=== PATIENT | male | born 1995 | race American Indian/Alaskan Native ===

== ENCOUNTER 2017-10-31 06:47 | Day surgery (SDC) | payer BC ==
[2017-10-31] MEDS ORDERED: Succinylcholine 200 mg/10 ml Inj IV ONE (07:15)
[2017-10-31] MEDS ORDERED: Propofol 10 mg/ml Inj (20 ML) ONE ×2 (07:15→09:40)
[2017-10-31] MEDS ORDERED: Midazolam 2 MG/2 ML VIAL ONE (07:15)
[2017-10-31] MEDS ORDERED: Rocuronium 10 mg/ml (5 ml) ONE (07:15)
[2017-10-31 07:23] VITALS: BMI 23.7
[2017-10-31] MEDS ORDERED: Lactated Ringer's 1,000 ML IV ONE ×3 (07:30→13:57)
[2017-10-31] MEDS ORDERED: Bacitracin Ointment 30 GM TUBE ONE (07:38)
[2017-10-31] MEDS ORDERED: ceFAZolin IV 1 gm in Dextrose 2 GM/100 ML BAG IVPB ONE (07:38)
[2017-10-31] MEDS ORDERED: Bupivacaine HCl 0.25% PF (30 ml) Inj ONE (07:38)
[2017-10-31] MEDS ORDERED: Lidocaine 2% w Epi 1:100,000 Inj IJ ONE ×2 (07:38→08:20)
[2017-10-31] MEDS ORDERED: Lidocaine 2% Inj (20ml) ONE (07:38)
[2017-10-31] MEDS ORDERED: Neostigmine Methylsulfate 2 MG/2 ML ML IV ONE (08:43)
[2017-10-31] MEDS ORDERED: Dexamethasone 4 mg/1 ml ONE (09:43)
[2017-10-31] MEDS ORDERED: HYDROCORTISONE IV ONE (10:00)
[2017-10-31] MEDS ORDERED: SODIUM CHLORIDE 0.9% IV ONE (10:00)
[2017-10-31] MEDS ORDERED: Hydrocortisone Succinat 250 MG vial IV ONE (10:30)
[2017-10-31] MEDS: HYDROmorphone 0.5 mg/0.5 ml ISec IVP PRN ×3 (10:45→11:50)
[2017-10-31 11:56] VITALS: RESP 20
[2017-10-31 17:04] VITALS: BP 116/68; PULSE 106; TEMP 98.2; O2SAT 96
--- NOTE | 2017-11-04 09:47 | OP ---
PROCEDURE DATE: INDICATION FOR PROCEDURE: Patient presented to my office with the complaint that he had some maxillary sinus inflammation. Clinical NPA exam revealed odontogenic-like lesion in left maxillary sinus floor. PREOPERATIVE DIAGNOSIS: Odontogenic lesion of left maxillary sinus. SURGEON: Cristel Hoskins DMD. TYPE OF ANESTHESIA: General anesthesia via nasal and oral intubation. DESCRIPTION OF THE PROCEDURE: Patient was placed in a supine position and after adequate level of general anesthesia was obtained, patient was then prepped and draped for an intraoral surgical procedure. The patient was then given infiltration both intraorally and with a #15 Bard-Rafael blade, a full mucoperiosteal flap was then elevated on the upper right, extending from the upper left tuberosity and up into the upper left canine with a vertical release. The flap was then elevated, exposing the left maxillary sinus lateral wall. Perforations were then made, creating an opening at the sinus. The sinus was then copiously irrigated exposing the tooth-like structures surrounded by soft tissue. The tooth-like structure was then removed with the associated soft tissue and submitted for a histopath evaluation. The sinus was copiously irrigated and tissues were then reapproximated with Chromic gut interrupted suturing. Prior to that, an iodoform packing was then placed and tissues were then approximated. The patient tolerated the procedure well without any complications. He was then discharged to the recovery room in good condition. Cristel Hoskins DMD
== END 2017-10-31 17:15 | disposition home or self-care (01) ==
LOC: H.OPSURG 06:47
PROVIDERS: ATTEND Dentist
DX: T17.0XXA Foreign body in nasal sinus, initial encounter (principal); F90.9 Attention-deficit hyperactivity disorder, unspecified type
CPT/HCPCS: 30310; 88304; J0330; J0690; J1100; J1170; J2001; J2250; J2405; J2704; J2710; J3010; J7030; J7120